=== PATIENT | female | born 2000 ===

== ENCOUNTER → 2025-07-08 | Outpatient (CLI) | payer OTHER | LOC: LAB 17:15 → LAB SHORT 17:15 | DX: Z34.90 Encounter for supervision of normal pregnancy, unspecified, unspecified trimester (principal) | CPT/HCPCS: 87081; 87150 ==

== ENCOUNTER 2025-07-23 18:36 | Inpatient (IN) | payer OTHER ==
[~2025-07-23] VITALS: Ht 160 cm; Wt 87.3 kg
[2025-07-23 19:15] VITALS: BP 129/85
[2025-07-23] MEDS ORDERED: Ondansetron HCl 2 MG / ML 2ML Vial IV PRN (20:45)
[2025-07-23] MEDS ORDERED: ePHEDrine Sulfate 50 MG/ML 1ML Injection XX PRN (20:45)
[2025-07-23] MEDS ORDERED: Carboprost Tromethamine 250 MCG/ML 1ML Amp IM PRN (20:45)
[2025-07-23] MEDS ORDERED: Methylergonovine Maleate 0.2MG / ML 1ML Amp IM PRN (20:45)
[2025-07-23] MEDS ORDERED: FentaNYL 2mcg/ml-Bup 0.1% Epd 250 ML EPI PRN (20:45)
[2025-07-23] MEDS ORDERED: OXYTOCIN/RINGER'S LACTATE 500 ML IV PRN (20:45)
[2025-07-23] MEDS ORDERED: Oxytocin 10 Unit / ML Vial IM PRN (20:45)
[2025-07-23] MEDS ORDERED: FentaNYL Citrate 50 MCG/ML 2 ML Injection IV PRN (20:45)
[2025-07-23 20:48] VITALS: BP 113/67
[2025-07-23 21:18] LABS: BASOPHILS ABSOLUTE AUTO 0.04 K/mm3 (0.00-0.23); BASOPHILS PERCENT AUTO 0 % (0-2); EOSINOPHILS ABSOLUTE AUTO 0.13 K/mm3 (0.00-0.68); EOSINOPHILS PERCENT AUTO 1 % (0-6); Hematocrit 36.8 % (33.0-51.0); Hemoglobin 12.3 g/dL (11.5-16.0); IMMATURE GRAN ABSOLUTE AUTO 0.08 K/mm3 (0.00-0.10); IMMATURE GRAN PERCENT AUTO 1 % (0-1); LYMPHOCYTES ABSOLUTE AUTO 2.62 K/mm3 (0.84-5.20); LYMPHOCYTES PERCENT AUTO 18 % (21-46); MONOCYTES ABSOLUTE AUTO 1.37 K/mm3 (0.16-1.47); MONOCYTES PERCENT AUTO 9 % (4-13); Mean Corpuscular HGB Conc 33.4 g/dL (31.5-36.5); Mean Corpuscular Volume 86 fL (80-100); NEUTROPHILS ABSOLUTE AUTO 10.76 K/mm3 (1.96-9.15); NEUTROPHILS PERCENT AUTO 72 % (41-73); NRBC ABSOLUTE 0.00 K/mm3 (0.00-0.02); NRBC Auto 0.0 /100 WBC (0.0-0.2); Platelet Count 321 K/mm3 (150-400); RDW Coefficient Variation 13.2 % (11.7-14.2); RDW Standard Deviation 41.0 fL (35.1-46.3)
[2025-07-23 22:23] VITALS: BP 131/85
[2025-07-23 23:27] VITALS: BP 119/75
[2025-07-24] VITALS (35 sets, daily range): BP systolic 92–139; BP diastolic 51–88
[2025-07-24] MEDS ORDERED: Metoclopramide HCl 5MG / ML 2ML Vial IV PRN (00:55)
[2025-07-24] MEDS ORDERED: DiphenhydrAMINE HCl 50 MG/ML 1ML Vial IV PRN (00:55)
[2025-07-24] MEDS ORDERED: ePHEDrine Sulfate 50 MG/ML 1ML Injection IV PRN (01:00)
[2025-07-24] MEDS ORDERED: Ondansetron HCl 2 MG / ML 2ML Vial IV PRN (01:00)
[2025-07-24] MEDS ORDERED: Naloxone HCl 0.4MG / ML 1ML Vial IV PRN (01:00)
[2025-07-24] MEDS ORDERED: Methylergonovine Maleate 0.2MG / ML 1ML Amp IM PRN (08:30)
[2025-07-24] MEDS ORDERED: OXYTOCIN/RINGER'S LACTATE 500 ML IV PRN (08:30)
[2025-07-24] MEDS ORDERED: Witch Hazel/Glycerin PADS TOP PRN (08:35)
[2025-07-24] MEDS ORDERED: Benzocaine Topical Anesthetic Spray 60GM TOP PRN (08:35)
[2025-07-24] MEDS ORDERED: Ketorolac Tromethamine 30mg Vial IV PRN (08:35)
[2025-07-24] MEDS ORDERED: Prenatal Vit/FE Fumarate/FA 1 Tab PO SCH (09:00)
[2025-07-25 00:21] VITALS: BP 125/81
[2025-07-25 06:11] VITALS: BP 115/76
[2025-07-25 06:22] LABS: BASOPHILS ABSOLUTE AUTO 0.04 K/mm3 (0.00-0.23); BASOPHILS PERCENT AUTO 0 % (0-2); EOSINOPHILS ABSOLUTE AUTO 0.10 K/mm3 (0.00-0.68); EOSINOPHILS PERCENT AUTO 1 % (0-6); Hematocrit 30.3 % (33.0-51.0); Hemoglobin 10.0 g/dL (11.5-16.0); IMMATURE GRAN ABSOLUTE AUTO 0.10 K/mm3 (0.00-0.10); IMMATURE GRAN PERCENT AUTO 1 % (0-1); LYMPHOCYTES ABSOLUTE AUTO 2.08 K/mm3 (0.84-5.20); LYMPHOCYTES PERCENT AUTO 12 % (21-46); MONOCYTES ABSOLUTE AUTO 1.54 K/mm3 (0.16-1.47); MONOCYTES PERCENT AUTO 9 % (4-13); Mean Corpuscular HGB Conc 33.0 g/dL (31.5-36.5); Mean Corpuscular Volume 88 fL (80-100); NEUTROPHILS ABSOLUTE AUTO 14.05 K/mm3 (1.96-9.15); NEUTROPHILS PERCENT AUTO 78 % (41-73); NRBC ABSOLUTE 0.00 K/mm3 (0.00-0.02); NRBC Auto 0.0 /100 WBC (0.0-0.2); Platelet Count 246 K/mm3 (150-400); RDW Coefficient Variation 13.6 % (11.7-14.2); RDW Standard Deviation 43.3 fL (35.1-46.3)
[2025-07-25 08:03] VITALS: BP 122/82
[2025-07-25 13:11] VITALS: BP 119/82
== END 2025-07-25 14:04 | disposition home or self-care (01) | DRG 807 ==
LOC: OBS 18:36 → BC 18:41 → OBS 20:51 → BC 20:52
PROVIDERS: ADMIT Family Medicine
PROC: 10E0XZZ Delivery of Products of Conception, External Approach (ICD-10-PCS; principal; 2025-07-24)
DX: O42.02 Full-term premature rupture of membranes, onset of labor within 24 hours of rupture (principal); Z37.0 Single live birth; Z3A.37 37 weeks gestation of pregnancy; O99.345 Other mental disorders complicating the puerperium; F53.0 Postpartum depression; O66.0 Obstructed labor due to shoulder dystocia
CPT/HCPCS: 36415; 51702; 59025; 81003; 85025; 86850; 86900; 86901; 87210; 99214; A9270; J1885; J2405; J7120